=== PATIENT | female | born 1965 | race American Indian/Alaskan Native ===

== ENCOUNTER 2016-03-18 14:18 | Outpatient (CLI) | payer BC ==
--- NOTE | 2016-03-18 16:02 | XRay Report ---
LUMBAR SPINE THREE VIEWS: 03/18/16 14:18:00 CLINICAL: Back pain. FINDINGS: Normal vertebral body height, alignment and disk spaces. The pedicles are intact. No fracture. Normal soft tissues. IMPRESSION: Normal study.
== END 2016-03-18 14:19 | disposition home or self-care (01) ==
LOC: SPVIMAG 14:18
PROVIDERS: ATTEND Family Medicine Adult Medicine
DX: M54.9 Dorsalgia, unspecified (principal)
CPT/HCPCS: 72100

== ENCOUNTER 2016-11-06 07:32 | Outpatient (CLI) | payer BC ==
--- NOTE | 2016-11-06 09:05 | Fluoroscopy Report ---
Air contrast upper GI: History: Abdominal pain. Findings: Transit of barium through the esophagus in prone and upright position appears normal. There is delayed transit noted, in distal half of the esophagus, due to extrinsic pressure from the enlarged ventricle. There is also noted mild reflux from region of delayed transit. There is no hiatal hernia noted. No esophageal ulceration Stomach is normal. Normal gastric emptying. No ulceration. Small diverticulum seen in the second part/descending of duodenum. Impression: No evidence of acute ulcer. Findings as detailed above.
== END 2016-11-06 07:33 | disposition home or self-care (01) ==
LOC: FLUORO 07:32
PROVIDERS: ATTEND Family Medicine Adult Medicine
DX: K57.10 Diverticulosis of small intestine without perforation or abscess without bleeding (principal)
CPT/HCPCS: 74247

== ENCOUNTER 2017-01-23 15:08 | Outpatient (CLI) | payer BC ==
--- NOTE | 2017-01-23 16:36 | Mammography Report ---
BILATERAL DIGITAL SCREENING MAMMOGRAM with CAD: 01/23/17 15:08:00 CLINICAL: Routine screening. COMPARISON:01/14/16 FINDINGS: The breasts are almost entirely fatty. No mass, architectural distortion or suspicious calcifications. IMPRESSION: No mammographic evidence of malignancy. BI-RADS CATEGORY: 1 - - Negative RECOMMENDATION: Routine mammographic screening in one year. COMMENT: Patient follow-up letters are generated by our [employer] application.
== END 2017-01-23 15:09 | disposition home or self-care (01) ==
LOC: SPVWC 15:08
PROVIDERS: ATTEND Family Medicine Adult Medicine
DX: Z12.31 Encounter for screening mammogram for malignant neoplasm of breast (principal)
CPT/HCPCS: 77067; G0202

== ENCOUNTER 2018-07-15 13:12 | Outpatient (CLI) | payer BC ==
--- NOTE | 2018-07-16 11:05 | Mammography Report ---
BILATERAL DIGITAL SCREENING MAMMOGRAM with CAD: 07/15/18 13:12:00 CLINICAL: Routine screening. COMPARISON:01/23/17 FINDINGS: The breasts are almost entirely fatty. No mass, architectural distortion or suspicious calcifications. IMPRESSION: No mammographic evidence of malignancy. BI-RADS CATEGORY: 1 - - Negative RECOMMENDATION: Routine mammographic screening in one year. COMMENT: Patient follow-up letters are generated by our [employer] application.
== END 2018-07-15 13:13 | disposition home or self-care (01) ==
LOC: SPVWC 13:12
PROVIDERS: ATTEND Obstetrics & Gynecology
DX: Z12.31 Encounter for screening mammogram for malignant neoplasm of breast (principal)
CPT/HCPCS: 77067

== ENCOUNTER 2019-07-28 10:22 | Outpatient (CLI) | payer BC ==
--- NOTE | 2019-07-28 15:36 | Mammography Report ---
DIGITAL SCREENING MAMMOGRAM WITH CAD, 07/28/2019 INDICATION: Routine screening mammography. TECHNIQUE: Digital bilateral 2D mammography was obtained in the craniocaudal and mediolateral obliq ue projections. This examination was interpreted with the benefit of Computer-Aided Detection analysi s. COMPARISON: 07/15/2018 FINDINGS: Breast Density: The breasts are almost entirely fatty. There is no evidence of dominant mass, suspicious calcifications or architectural distortion in eithe r breast. Postreduction mammoplasty noted. No interval change from prior mammogram. IMPRESSION: No evidence of malignancy. Follow up recommendation: Routine yearly BI-RADS Category 2: Benign. A "normal" or negative report should not discourage follow up or biopsy of a clinically significant f inding. A written summary of these findings will be mailed to the patient. The patient will be entered into a mammography reporting system which will generate a reminder letter for the patient's next appointmen t at the appropriate interval. The [employer] recommends yearly mammograms starting at age 40 and continuing as l fab as a woman is in good health. Breast MRI is recommended for women with an approximate 20-25% or greater lifetime risk of breast cancer, including women with a strong family history of breast or ova justine cancer or who have been treated for Hodgkin's disease. Signer Name: Rosa Maria Shafer MD Signed: 07/28/2019 3:31 PM Workstation Name: [id number]
== END 2019-07-28 10:23 | disposition home or self-care (01) ==
LOC: SPVWC 10:22
PROVIDERS: ATTEND Obstetrics & Gynecology
DX: Z12.31 Encounter for screening mammogram for malignant neoplasm of breast (principal); N64.89 Other specified disorders of breast
CPT/HCPCS: 77067

== ENCOUNTER 2021-09-03 11:45 | Outpatient (CLI) | payer BC ==
--- NOTE | 2021-09-05 17:51 | Mammography Report ---
DIGITAL SCREENING MAMMOGRAM WITH CAD, 09/03/2021 CLINICAL INFORMATION / INDICATION: Routine screening mammography. TECHNIQUE: Digital bilateral 2D mammography was obtained in the craniocaudal and mediolateral obliqu e projections. This examination was interpreted with the benefit of Computer-Aided Detection analysis . COMPARISON: 07/28/2019, 07/15/2018 FINDINGS: Breast Density: The breasts are almost entirely fatty. No dominant mass, suspicious calcifications, or architectural distortion in either breast. Reduction changes are again seen bilaterally with similar lower inner right breast nodularity. IMPRESSION: No mammographic evidence of malignancy. Follow up recommendation: Routine yearly screening mammogram. BI-RADS Category 2: BENIGN. A "normal" or negative report should not discourage follow up or biopsy of a clinically significant f inding. A written summary of these findings will be mailed to the patient. The patient will be entered into a mammography reporting system which will generate a reminder letter for the patient's next appointmen t at the appropriate interval. The [employer] recommends yearly mammograms starting at age 40 and continuing as l fab as a woman is in good health. Breast MRI is recommended for women with an approximate 20-25% or greater lifetime risk of breast cancer, including women with a strong family history of breast or ova justine cancer or who have been treated for Hodgkin's disease. Signer Name: Mc Brower MD Signed: 09/05/2021 5:47 PM Workstation Name: [id number]
== END 2021-09-03 11:46 | disposition home or self-care (01) ==
LOC: SPVWC 11:45
PROVIDERS: ATTEND Obstetrics & Gynecology
DX: Z12.31 Encounter for screening mammogram for malignant neoplasm of breast (principal)
CPT/HCPCS: 77067